=== PATIENT | male | born 1985 | race Caucasian/White ===

== ENCOUNTER 2018-06-02 08:32 | Emergency (ER) | payer MEDICAID ==
[~2018-06-02] VITALS: Ht 175.3 cm; Wt 90.7 kg
[2018-06-02 08:40] VITALS: BP 136/97; Ht 175.3 cm; Wt 90.7 kg
== END 2018-06-02 09:03 | disposition home or self-care (01) ==
LOC: ED 08:32
DX: K02.9 Dental caries, unspecified (principal); I10 Essential (primary) hypertension; E78.00 Pure hypercholesterolemia, unspecified

== ENCOUNTER 2018-08-14 10:22 | Emergency (ER) | payer MEDICAID ==
[~2018-08-14] VITALS: Ht 175.3 cm; Wt 91.2 kg
[2018-08-14 10:33] VITALS: Ht 175.3 cm; Wt 91.2 kg
[2018-08-14 13:30] VITALS: BP 147/88
== END 2018-08-14 13:30 | disposition home or self-care (01) ==
LOC: ED 10:22
DX: S23.3XXA Sprain of ligaments of thoracic spine, initial encounter (principal); S80.811A Abrasion, right lower leg, initial encounter; E78.00 Pure hypercholesterolemia, unspecified; I10 Essential (primary) hypertension; W10.8XXA Fall (on) (from) other stairs and steps, initial encounter; Y93.89 Activity, other specified; Y92.89 Other specified places as the place of occurrence of the external cause; Y99.8 Other external cause status
CPT/HCPCS: J2270; Q0092

== ENCOUNTER 2019-03-21 14:27 | Emergency (ER) | payer MEDICAID ==
[~2019-03-21] VITALS: Ht 177.8 cm; Wt 88.9 kg
[2019-03-21 14:34] VITALS: Ht 177.8 cm; Wt 88.9 kg
[2019-03-21 16:01] VITALS: BP 130/79
== END 2019-03-21 16:01 | disposition home or self-care (01) ==
LOC: ED 14:27
DX: K04.7 Periapical abscess without sinus (principal); K02.9 Dental caries, unspecified; I10 Essential (primary) hypertension; E78.00 Pure hypercholesterolemia, unspecified
CPT/HCPCS: J0690

== ENCOUNTER 2019-07-24 10:35 | Emergency (ER) | payer MEDICAID ==
[~2019-07-24] VITALS: Ht 175.3 cm; Wt 91.6 kg
[2019-07-24 10:51] VITALS: BP 163/97; Ht 175.3 cm; Wt 91.6 kg
== END 2019-07-24 12:12 | disposition left against medical advice (07) ==
LOC: ED 10:35
DX: Z53.21 Procedure and treatment not carried out due to patient leaving prior to being seen by health care provider (principal)

== ENCOUNTER 2019-07-29 08:09 | Emergency (ER) | payer MEDICAID ==
[~2019-07-29] VITALS: Ht 175.3 cm; Wt 89.8 kg
[2019-07-29 08:19] VITALS: Ht 175.3 cm; Wt 89.8 kg
[2019-07-29 10:24] VITALS: BP 139/95
== END 2019-07-29 10:24 | disposition home or self-care (01) ==
LOC: ED 08:09
DX: J18.9 Pneumonia, unspecified organism (principal); K04.7 Periapical abscess without sinus; E78.00 Pure hypercholesterolemia, unspecified; I10 Essential (primary) hypertension
CPT/HCPCS: J0696

== ENCOUNTER 2019-09-11 09:31 | Emergency (ER) | payer MEDICAID ==
[~2019-09-11] VITALS: Ht 175.3 cm; Wt 89.8 kg
[2019-09-11 11:38] VITALS: BP 132/78
== END 2019-09-11 11:38 | disposition home or self-care (01) ==
LOC: ED 09:31
DX: S20.212A Contusion of left front wall of thorax, initial encounter (principal); I10 Essential (primary) hypertension; E78.00 Pure hypercholesterolemia, unspecified; Z98.890 Other specified postprocedural states; X58.XXXA Exposure to other specified factors, initial encounter; Y93.89 Activity, other specified; Y92.89 Other specified places as the place of occurrence of the external cause; Y99.8 Other external cause status